=== PATIENT | female | born 1955 | race Caucasian/White ===

== ENCOUNTER 2017-03-17 00:10 | Outpatient (CLI) | payer BC ==
[2017-03-17 02:39] LABS: BASOPHILS 0.2 % (0-2); EOSINOPHILS 2.4 % (0-7); HEMATOCRIT 41.1 % (36.0-48.0); HEMOGLOBIN 14.4 g/dL (12-16); IMMATURE GRANULOCYTES 0.4 % (0-5); LYMPHOCYTES 13.3 % (15-50); MCH 31.4 pg (26.0-34.0); MCV 89.5 fL (80.0-100.0); MONOCYTES 5.5 % (2-11); NEUTROPHILS 78.2 % (40-80); PLATELET COUNT 310 10x3/uL (130-400); RBC 4.59 10x6/uL (4.00-5.40); RDW 12.6 % (11.5-14.5); WBC 18.8 10x3/uL (4.8-10.8)
[2017-03-17 02:47] LABS: APTT 24.5 SECONDS (22.8-39.4); INR 0.87 (0.85-1.17); PROTIME 11.7 SECONDS (11.6-15.0)
[2017-03-17 02:51] LABS: ALBUMIN 4.2 g/dL (3.4-5.0); ANION GAP 13.7 mmol/L (8-16); BILIRUBIN - TOTAL 0.62 mg/dL (0.2-1.3); CALCIUM 9.6 mg/dL (8.5-10.1); CARBON DIOXIDE 29.5 mmol/L (21.0-32.0); POTASSIUM - SERUM 4.2 mmol/L (3.5-5.1); PROTEIN - SERUM 7.8 g/dL (6.4-8.2)
[2017-03-17 03:02] LABS: APPEARANCE TURBID (CLEAR); COLOR RED (YELLOW); LEUKOCYTE ESTERASE TRACE (NEGATIVE); NITRITE NEGATIVE (NEGATIVE); PROTEIN 3+ mg/dL (NEGATIVE); SPECIFIC GRAVITY 1.015 (1.005-1.020)
[2017-03-17 03:03] LABS: BILIRUBIN NEGATIVE (NEGATIVE); GLUCOSE 1000 mg/dL (NEGATIVE); KETONE NEGATIVE (NEGATIVE); UROBILINOGEN NORMAL (NORMAL)
[2017-03-17 03:05] LABS: BACTERIA MODERATE /hpf (NONE SEEN); EPITHELIAL CELLS OCC /hpf (0-5); GRANULAR CAST RARE /lpf (NONE SEEN); HYALINE CAST OCC /lpf (NONE SEEN); MUCUS <1+ /lpf (NONE SEEN); RED CELLS - URINE >50 /hpf (0-5); WHITE CELLS - URINE 25-50 /hpf (0-5)
--- NOTE | 2017-03-17 10:33 | NUR ---
0950 IV DC WITH CATHER TIP INTACT
--- NOTE | 2017-03-18 14:58 | OP ---
PATIENT NAME: ELLIE FERREIRA MEDICAL RECORD: [id number] :53 LOCATION:D.OPS ADMISSION DATE: SURGEON: MIHIR STEVENS MD DATE OF OPERATION: 03/17/2017 SURGEON: Mihir Stevens M.D. ANESTHESIA: MAC by [address] CRNA. PREOPERATIVE DIAGNOSIS: Gross hematuria. FINDINGS: Patchy bladder inflammation consistent with cystitis. No bladder tumors. Single ureteral orifices bilaterally. PROCEDURE: Cystoscopy. SPECIMENS: None. COMPLICATIONS: None. ESTIMATED BLOOD LOSS: None. CLINICAL HISTORY: This is a 61-year-old female, who has a history of diabetes mellitus. She is taking medications, one of which induces glucosuria. Last night, she came to the Emergency Room with acute red blood in the urine with dysuria. Urine was sent for culture. She had a catheter placed and her bladder was irrigated out and it became less bloody over time. Since she was in the Emergency Room, the ER physician asked if I could scope her and determine the cause of her bleeding. She is therefore coming to have cystoscopy performed. We gave her a dose of gentamicin 80 mg IV business analyst consultant to the OR. DESCRIPTION OF PROCEDURE: The patient was given IV sedation. The 21-Romansh cystoscope was placed into the bladder. She has single ureteral orifices bilaterally. No bladder tumors were seen. No bleeding from the ureteral orifices was seen. There are large areas of patchy inflammation around the bladder wall consistent with bacterial cystitis. The bladder was then emptied through the scope and I will send her home with a prescription for oral Bactrim. I will see her in followup in 2 weeks' time. TRANSINT:[id number] Voice Confirmation ID: [id number] DOCUMENT ID: [id number] MIHIR STEVENS MD at 1458 CC: [id number] DICTATION DATE: 03/17/17 09 [employer]: 03/17/17 1643 DEP CLI 03/17/[address] [id number]
== END 2017-03-17 10:15 | disposition home or self-care (01) ==
LOC: D.OPS 00:10 → D.ER 00:10 → D.OPS 10:15 → EDSTATUS 11:45
PROVIDERS: Family Medicine
DX: R31.0 Gross hematuria (principal); M54.5 Low back pain; Z01.812 Encounter for preprocedural laboratory examination

== ENCOUNTER → 2019-03-15 12:40 | Outpatient (CLI) | payer BC | END | disposition home or self-care (01) | LOC: D.MRI 12:40 | PROVIDERS: ATTEND Family Medicine | DX: M23.321 Other meniscus derangements, posterior horn of medial meniscus, right knee (principal) ==